=== PATIENT | female | born 1965 | race Caucasian/White ===

== ENCOUNTER 2017-06-30 22:04 | Inpatient (IN) ==
[2017-06-30] MEDS ORDERED: METHYLPREDNISOLONE SOD SUCC 125mg/2ml INJECTION IM ONE (22:18)
[2017-06-30] MEDS ORDERED: ALBUTEROL/IPRATROPIUM 2.5mg-0.5mg/3ml NEB AEROSOL ONE ×2 (22:18→23:46)
[2017-06-30] MEDS ORDERED: METHYLPREDNISOLONE SOD SUCC 125mg/2ml INJECTION IVP ONE (22:27)
--- NOTE | 2017-06-30 22:32 | Emergency Department Report ---
Asthma HPI - General Chief Complaint: Upper Respiratory Infection Stated Complaint: Trouble breathing Time Seen by Provider: 06/30/17 22:18 Source: patient, family Mode of arrival: ambulatory Limitations: no limitations - History of Present Illness HPI Narrative: Patient presents with difficulty breathing, confusion, and some delirium over the past 36 hours. Patient has COPD/asthma, uses only beclomethasone daily, with when necessary albuterol. Patient has not used her nebulizer, as she has loaded someone and doesn't know where it is. Patient has no medical medications other than a Ventolin inhaler at home as well. She had similar symptoms last year when she had respiratory failure and sepsis secondary to pneumonia. Her daughter who lives with her, works nights, and notes that the patient was having increasing difficulty breathing tonight so she came back to [facility], rather than [facility] which is closer, because they feel confident due to past history with [facility]. Patient doctors both with her primary physician as well as her dental patient coordinator in [facility]. MD complaint: shortness of breath, wheezing Onset (ago): day(s) Severity: severe Associated symptoms: productive cough - Related Data Home Medications Medication Instructions Recorded Confirmed Albuterol Sulfate [Ventolin Hfa] 1 puff INH DAILY PRN #0 05/09/16 Atenolol 50 mg PO DAILY #0 05/09/16 Atorvastatin Calcium 40 mg PO DAILY #0 05/09/16 Budesonide/Formoterol Fumarate 1 puff AEROSOL PRN #0 05/09/16 [Symbicort 160-4.5 Mcg Inhaler] Duloxetine HCl 60 mg PO DAILY #0 05/09/16 Levothyroxine Sodium 125 mcg PO ACB #0 05/09/16 Morphine Sulfate [Morphine Sulfate 30 mg PO BID #0 05/09/16 ER] Umeclidinium [place] [Incruse 1 cap INH PRN #0 05/09/16 Ellipta] Zolpidem Tartrate 10 mg PO HS #0 05/09/16 clonazePAM [Clonazepam] 1 mg PO BID #0 05/09/16 lamoTRIgine [Lamotrigine] 150 mg PO BID #0 05/09/16 Previous Rx's Medication Instructions Recorded Budesonide 0.5 mg AEROSOL RTBID 14 Days #1 box 05/14/16 Ipratropium/Albuterol Sulfate 3 ml AEROSOL RTQID 14 Days #1 box 05/14/16 [Iprat-Albut 0.5-3(2.5) mg/3 ml] PredniSONE [Deltasone] 10 mg PO WB #85 tab 05/14/16 levoFLOXacin [Levaquin] 500 mg PO DAILY 7 Days #0 05/14/16 Allergies Allergy/AdvReac Type Severity Reaction Status Date / Time codeine Allergy Unknown Verified 05/09/16 10:47 Sulfa (Sulfonamide Allergy Unknown Verified 05/09/16 10:47 Antibiotics) Review of Systems All systems: reviewed and negative except as stated PFSH Patient Stated Medical History Hypertension Yes Asthma Yes Osteoarthritis Yes Depression Yes Psoriatic arthritis Global chronic pain syndrome Narcotic dependence - Social History Smoking status: Never smoker Physical Exam - Limitations Limitations: no limitations - General General appearance: alert (patient is alert, but appears mildly confused), obese - Normal Exams: Head:: Normocephalic without trauma Eyes:: Pupils are PERRLA w/ EOMI, No scleral icterus, irritation, or foreign bodies noted ENMT:: No facial trauma, nasal exudates, pharyngeal erythema, or exudates are noted Neck:: Full range of motion, without adenopathy, JVD, bruits or thyromegaly Cardiovascular:: Regular rate and rhythm, without murmur or gallop, Pulses 2+ all extremities, capillary refill, <2 seconds all extremities Abdomen:: Bowel sounds positive, soft, non-tender, non-distended, no hepatosplenomegaly, masses or bruits noted Lymphatic:: No lymphadenopathy, or lymphedema noted Musculoskeletal:: No tenderness, or deformity noted, good range of motion, all extremities Integumentary:: No rashes, hives, or bruising noted, hair and nails, without abnormality Neurological:: Patient is alert, and oriented, cranial nerves, motor/sensory/ cerebellar, exams w/o gross deficits, to observation Psychiatric:: Patient exhibits, appropriate attention, emotion and affect - Chest Chest inspection: Present: normal inspection, symmetric chest wall rise. Absent : tenderness - Respiratory Respiratory exam: Present: wheezes, prolonged expiratory phase. Absent: normal lung sounds bilaterally (course wheezes and rhonchi bilaterally), respiratory distress, accessory muscle use Course Vital Signs Pulse Rate 116 H 06/30/17 22:21 Pulse Oximetry 94 06/30/17 22:21 Temperature 98.1 F 06/30/17 23:04 Pulse Rate 122 H 06/30/17 23:45 Respiratory Rate 22 07/01/17 00:22 Blood Pressure 150/90 H 06/30/17 23:30 Pulse Oximetry 94 07/01/17 00:22 Dyspnea - MDM Narrative Medical decision making narrative: Patient given 2 DuoNeb's an 125 mg Solu-Medrol IV with 1 L normal saline IV fluid bolus - patient improved, but continues to have hypoxemia as she is sleeping. Due to the patient's body habitus and her narcotic use, it seems very typical for this patient might have sleep apnea. After the initial 2 treatments and Solu-Medrol, patient is improved, but certainly not back to her baseline as she continues to have rhonchi and wheezes though her air movement is much improved. CBC normal CMP normal with the exception of moderate elevation in the liver enzymes, which appears typical for the patient from previous visits Chest x-ray sexually significantly better than all prior films. After initial studies were done, patient given 2 additional DuoNeb's - patient still breathing better, but continues to have audible wheezing, and continues to be oxygen dependent with hypoxemia on room air. Patient will be admitted to Dr. Mauro Bautista for the hospitalist service, for COPD exacerbation, with hypoxemia - Lab Data Result diagrams: 06/30/17 22:45 06/30/17 22:45 Lab Results 06/30/17 06/30/17 Range/Units 22:45 22:45 WBC 14.3 H (4.5-11.0) T/MM3 RBC 4.52 (4.00-5.20) M/MM3 Hgb 12.5 (12-16) GM/DL Hct 39.7 (36-46) % MCV 87.8 (80-100) UM3 MCH 27.7 (26-34) UUG MCHC 31.5 (31-37) GM/DL RDW Std Deviation 41.6 (36.9-50.2) FL Plt Count 395 (130-400) T/MM3 MPV 9.9 (9.4-12.4) UM3 Immature Gran % (Auto) 0.2 (0.0-0.5) % Neut % (Auto) 67.5 H (33-66) % Lymph % (Auto) 24.4 (23-45) % [place] % (Auto) 4.7 (0-9.0) % Eos % (Auto) 3.0 (0-4) % Baso % (Auto) 0.2 (0-2) % Neut # (Auto) 9.7 H (1.8-7.7) T/MM3 Lymph # (Auto) 3.5 (1-4.8) T/MM3 [place] # (Auto) 0.7 (0-0.8) T/MM3 Eos # (Auto) 0.4 (0-0.5) T/MM3 Baso # (Auto) 0.0 (0-0.2) T/MM3 Abs Immat Gran (auto) 0.03 (0.00-0.03) T/MM3 Turbidity < 20 (0-20) Sodium 139 (134-144) MEQ/L Potassium 4.2 (3.6-5) MEQ/L Chloride 102 (98-107) MEQ/L Carbon Dioxide 28 (22-30) MEQ/L Anion Gap 9 (5-15) MEQ/L BUN 6.0 L (7-17) MG/DL Creatinine 0.5 L (0.7-1.2) MG/DL GFR Calculation 130 BUN/Creatinine Ratio 12 (6-26) RATIO Glucose 140 H (65-110) MG/DL Calculated Osmolality 268 (261-280) MOSM/KG Calcium 9.3 (8.4-10.2) MG/DL Total Bilirubin 0.70 (0.20-1.30) MG/DL Conjugated Bilirubin 0.00 (0.00-0.30) MG/DL Unconjugated Bilirubin 0.00 (0.00-1.1) MG/DL Icterus Index < 2 (0-7) AST 382 H (14-36) U/L ALT 168 H (9-52) U/L Alkaline Phosphatase 282 H (38-126) U/L Total Protein 7.5 (6.3-8.2) G/DL Albumin 4.0 (3.5-5.0) G/DL Globulin 3.5 (2.4-3.6) G/DL Albumin/Globulin Ratio 1.1 (1.1-2.2) RATIO Plasma Lactate 1.3 (0.6-2.2) MMOL/L Specimen Hemolysis 27 H (0-25) Critical Care Time Critical Care Time: Yes Total Critical Care Time: 45 Attestation: Patient required aggressive respiratory therapy as well as aggressive diagnostic and interventions secondary to confusion hypoxemia and possible sepsis with tachycardia. Disposition Clinical Impression: COPD exacerbation Disposition: 02 To [facility] [place] Acute Care Condition: Improved Prescriptions: No Action Morphine Sulfate [Morphine Sulfate ER] 30 mg PO BID #0 clonazePAM [Clonazepam] 1 mg PO BID #0 Atenolol 50 mg PO DAILY #0 Duloxetine HCl 60 mg PO DAILY #0 Budesonide/Formoterol Fumarate [Symbicort 160-4.5 Mcg Inhaler] 1 puff AEROSOL PRN #0 levoFLOXacin [Levaquin] 500 mg PO DAILY 7 Days #0 Budesonide 0.5 mg AEROSOL RTBID 14 Days #1 box Levothyroxine Sodium 125 mcg PO ACB #0 Zolpidem Tartrate 10 mg PO HS #0 lamoTRIgine [Lamotrigine] 150 mg PO BID #0 Albuterol Sulfate [Ventolin Hfa] 1 puff INH DAILY PRN #0 PRN Reason: PRN ORDERS Atorvastatin Calcium 40 mg PO DAILY #0 Umeclidinium [place] [Incruse Ellipta] 1 cap INH PRN #0 Ipratropium/Albuterol Sulfate [Iprat-Albut 0.5-3(2.5) mg/3 ml] 3 ml AEROSOL RTQID 14 Days #1 box PredniSONE [Deltasone] 10 mg PO WB #85 tab Referrals: Daog Collado MD [Family Provider] - - Seen By: physician
[2017-06-30] MEDS: SALINE FLUSH 10ml SYRINGE IVF PRN (22:42)
[2017-06-30] MEDS: NS 1,000 ML IV SCH (22:55)
[2017-07-01] MEDS ORDERED: ONDANSETRON 4 MG/2 ML INJECTION IVP PRN (01:15)
[2017-07-01] MEDS ORDERED: Bisacodyl EC TAB 5 MG TABLET PO PRN (01:15)
[2017-07-01] MEDS: SALINE FLUSH 10ml SYRINGE IVF PRN ×4 (01:53→17:50)
--- NOTE | 2017-07-01 02:12 | History & Physical Report ---
<Mauro Bautista P - Last Filed: 07/01/17 02:09> History of Present Illness Date: 07/01/17 Chief complaint: sob and cough HPI: Ms. Merlos is a 51yo woman with h/o COPD not on home O2, HTN, dyslipidemia, partial thyroidectomy, KENDRA on CPAP, Gastric sleeve, psoriatic arthritis, and chronic pain who presents with 2-3 days of progressive sob and cough with green sputum. No blood in sputum, and no persistent pleurisy or other CP. Noted fevers, chills, nausea and emesis. No abd pain but a couple of loose stools. She denies syncope or other med changes with her noting taking her ventolin and albuterol nebs infrequently. She feels better after 4 albuterol nebs and solumedrol in the ED with a liter NS. Please note that the patient was seen via telemedicine with nursing assistance on 07/01/2017. [facility] Patient Stated Medical History Migraine Yes Hypertension Yes Asthma Yes Chronic Obstructive Pulmonary Yes Disease (COPD) Pneumonia Yes Gastroesophageal Reflux Yes Disease Hepatitis Yes: Hep C Anemia Yes Other Hematologic Yes: Polycythemia Osteoarthritis Yes Depression Yes Surgical History: as in hpi with gastric sleeve, partial thyroidectomy, laminectomy - Social History Smoking status: Former smoker Alcohol intake frequency: does not drink Current residence: Apartment/Private Home ([place] outside [place], but liked the care at [facility] 1 year ago) Medications Home Medications Medication Instructions Recorded Confirmed Type Albuterol Sulfate [Ventolin Hfa] 1 puff INH DAILY PRN #0 05/09/16 07/01/17 History Atenolol 50 mg PO DAILY #0 05/09/16 07/01/17 History Budesonide/Formoterol Fumarate 1 puff AEROSOL PRN #0 05/09/16 07/01/17 History [Symbicort 160-4.5 Mcg Inhaler] Duloxetine HCl 60 mg PO DAILY #0 05/09/16 07/01/17 History Levothyroxine Sodium 125 mcg PO ACB #0 05/09/16 07/01/17 History Umeclidinium [place] [Incruse 1 cap INH PRN #0 05/09/16 07/01/17 History Ellipta] lamoTRIgine [Lamotrigine] 150 mg PO BID #0 05/09/16 07/01/17 History LORazepam [Lorazepam] 1 mg PO BID PRN MDD 2 07/01/17 07/01/17 History Oxycodone HCl 10 mg PO QID PRN MDD 4 07/01/17 07/01/17 History Oxycodone HCl [Oxycontin] 10 mg PO Q12HR PRN MDD 2 07/01/17 07/01/17 History Allergies Allergy/AdvReac Type Severity Reaction Status Date / Time codeine Allergy Unknown Verified 05/09/16 10:47 Sulfa (Sulfonamide Allergy Unknown Verified 05/09/16 10:47 Antibiotics) Exam Vital Signs: Temperature 96.7 F L 07/01/17 01:34 Pulse Rate 121 H 07/01/17 01:34 Respiratory Rate 12 07/01/17 01:34 Blood Pressure 125/90 H 07/01/17 01:34 Pulse Oximetry 94 07/01/17 01:34 Telemetry Rhythm: Sinus Rhythm Height/Weight/BMI: Height 1.6 m Weight 109.8 kg Body Mass Index 42.8 - Constitutional Present: no acute distress, morbidly obese, obese - Routine HEENT Exam Head: Present: normocephalic Eye: Present: EOMI - Routine Respiratory Exam Absent: accessory muscle use, respiratory distress Comments: bilateral wheezing with no focal rales, symmetric effort - Routine Cardiovascular Exam Present: RRR, S1, S2 - Routine Abdominal Exam Present: soft, normoactive bowel sounds - Routine Skin Exam Present: intact - Routine Neurological Exam Present: alert, oriented X3, CN II-XII intact - Routine Psychiatric Exam Present: normal affect Results - Labs CBC & Chem 7: 06/30/17 22:45 06/30/17 22:45 Assessment and Plan (1) COPD exacerbation Current visit: Yes Status: Acute 07/01/17 02:17 full inpatient admission with nebs, solumedrol, prior budesonide, and azithromycin IV. Hypoxia POA with SpO2 85% with home O2 eval if does not normalize after 2-3 days with no focal infx by CXR. Treat for acute infectious bacterial bronchitis/tracheitis with azithromycin. Needs to lose weight, and CPAP compliance for KENDRA stressed. (2) KENDRA (obstructive sleep apnea) Current visit: Yes Status: Acute (3) Hyperglycemia Current visit: Yes Status: Acute (4) HTN (hypertension) Current visit: Yes Status: Acute (5) Dyslipidemia Current visit: Yes Status: Acute (6) GERD (gastroesophageal reflux disease) Current visit: Yes Status: Acute Resuscitation Status: Full Code Hospital Course Summary Disclaimer: The visit summary below is not to be considered part of the above Progress Note. <Mouna Sheldon - Last Filed: 07/01/17 14:27> History of Present Illness Date: 07/01/17 Exam Vital Signs: Temperature 97.5 F 07/01/17 08:00 Pulse Rate 115 H 07/01/17 08:00 Respiratory Rate 22 07/01/17 11:30 Blood Pressure 140/85 H 07/01/17 08:00 Pulse Oximetry 97 07/01/17 11:30 Height/Weight/BMI: Height 1.6 m Weight 109.9 kg Body Mass Index 42.8 Results - Labs CBC & Chem 7: 07/01/17 10:33 06/30/17 22:45 Microbiology Results: Microbiology 07/01/17 13:17 Sputum, Expectorated Sputum Culture - Preliminary Culture Initiated - Results Pending Assessment and Plan (1) COPD exacerbation Current visit: Yes Status: Acute (2) KENDRA (obstructive sleep apnea) Current visit: Yes Status: Acute (3) Hyperglycemia Current visit: Yes Status: Acute (4) HTN (hypertension) Current visit: Yes Status: Acute (5) Dyslipidemia Current visit: Yes Status: Acute DVT Prophylaxis: Lovenox GI Prophylaxis: Pepcid Assessment and Plan: Dr. Bautista's note reviewed. Anjana interviewed and examined. CC: Dyspnea/confusion HPI: Resolved 1-year-old female with history of COPD who describes increasing dyspnea with cough and wheezing for 2-3 days. She has not had fever, chills, or sweats but reports sore throat, nasal congestion and postnasal drainage. In the emergency room confusion for 36 hours was described and currently patient reports no memory of being transported to the emergency room. She denies preceding dizziness or lightheadedness, denies home use of oxygen, and reports exertional dyspnea with one flight of stairs in the recent past. She reports that she was previously advised she needed oxygen at home but declined initiation of O2. Cough became productive of green sputum about 1 day ago. PH/SH/FH: agree with that recorded above with additional history of hypothyroidism, cervical laminectomy, right rotator cuff repair, bilateral TKA, cholecystectomy, bilateral tubal ligation, ORIF left wrist, and ORIF left ankle. Patient discontinued tobacco use approximately 15 years ago after "social" smoking since her teenage years. She has a history of experimenting with illicit drugs but no recent use. Her primary care physician is Dr. Dago Collado, she is a full code, and she would like for her daughter, Pooja River, be her alternate decision maker. Family history is notable only for father having hypertension; patient denies family history of lung disease, diabetes, cancer, or diabetes. ROS: 10 point review completed with patient describing some difficulty with her vision, tinnitus, palpitations, and tremors (PTCA)-unclear if tremors correlate with breathing treatments. EXAM: General-NAD, talkative, no evidence of respiratory distress HEENT-PERRL, EOMI without nystagmus, conjunctiva clear, sclera anicteric, conjugate gaze, facial structures symmetric, oropharynx clear, neck supple and without adenopathy Lungs-respirations nonlabored, good airflow, faint crackles at the left base initially-clear with repetitive inspirations, right lung entirely clear, no wheezing Cardiac-regular rhythm, S1-S2, low-grade tachycardia Abd-obese, soft, nontender, bowel sounds present Ext-without edema Skin-without evidence of wounds or rashes Neuro-cranial nerves 3-12 intact, MAEW, sensation intact to light touch/ temperature, no tremor present Psych-slightly anxious, cooperative, fluent speech DATA: Admission white count 14.3 increasing to 20.1 today; electrolytes unremarkable, creatinine 0.7, AST 382, ALT 168, alkaline phosphatase 282. Initial lactic acid 1.3 increasing to 3.9 this morning. Respiratory viral panel positive for rhinovirus. Procalcitonin 0.07. Chest x-ray reviewed by myself-NAD, angles clear. A/P: COPD exacerbation with hypoxia Rhinovirus URI Lactic acidosis Leukocytosis Chronic pain syndrome Altered mental status, resolved Abnormal liver enzymes Hypertension Obstructive sleep apnea Hyperglycemia GERD Hypothyroid Obesity Patient presents with COPD exacerbation triggered by rhinovirus URI. Sputum culture pending to look for superimposed bacterial tracheobronchitis. She is fully alert at present and hemodynamically stable. Lactic acid elevated of no clinical significance and there is no clinical indication of severe sepsis. Procalcitonin inconsistent with sepsis. Unclear if aggressive beta agonist therapy in conjunction with IV steroids has triggered elevated lactic acid. No indication for further fluid boluses. Oxygenating well with 1 L supplemental O2. Continue azithromycin-convert to oral delivery. IV steroids initiated overnight for COPD exacerbation, continue. Continue beta agonist therapy. Single dose Rocephin given earlier but given normal chest x-ray and evidence of viral infection we'll discontinue at this time. Monitor blood sugars on steroids, corrective insulin if needed. Nursing advised me that the patient has been using OxyContin for breakthrough pain taking up to 6 tablets at a time and using OxyIR twice daily for her maintenance medication. Suspect this may have contributed to altered mental status on presentation. Will attempt to minimize narcotics during hospital course. Patient was pain free when seen having received no narcotics overnight. Resume Cymbalta, Lamictal, levothyroxine, lorazepam when necessary, and OxyIR when necessary. Pepcid added for gastric protection/GERD while on steroids; Lovenox for DVT prevention. Hospital Course Summary Disclaimer: The visit summary below is not to be considered part of the above Progress Note.
[2017-07-01] MEDS ORDERED: AZITHROMYCIN IV 500 MG in NS 250ml 250 ML IV SCH (02:15)
[2017-07-01] MEDS ORDERED: NS IV SCH (03:00)
[2017-07-01] MEDS ORDERED: METHYLPREDNISOLONE SOD SUCC IV SCH (03:00)
[2017-07-01] MEDS: NS 1,000 ML IV SCH ×3 (03:48→23:23)
[2017-07-01] MEDS: ALBUTEROL/IPRATROPIUM 2.5mg-0.5mg/3ml NEB AEROSOL SCH ×6 (04:58→23:37)
[2017-07-01] MEDS: BUDESONIDE INH.SOLN 0.5mg/2ml NEB AEROSOL SCH ×2 (07:30→19:10)
--- NOTE | 2017-07-01 07:54 | XRay Report ---
INDICATION: difficulty breathing with cough PROCEDURE: CHEST 2-VIEWS UPRIGHT (PA & LAT) Encounter: Initial COMPARISON: May 12, 2016 FINDINGS: The lungs are clear without evidence of focal abnormal airspace opacity. There is no pleural effusion or pneumothorax. Prior right PICC line has been removed. Right-sided airspace consolidation has resolved. The heart size, mediastinal contours and pulmonary vascularity are within normal limits. There is no significant skeletal abnormality. IMPRESSION: No acute cardiopulmonary disease. .
[2017-07-01] MEDS: ENOXAPARIN 40 MG/0.4 ML INJECTION SQ SCH (09:25)
[2017-07-01] MEDS: ATENOLOL 50 MG TABLET PO SCH (09:26)
[2017-07-01] MEDS: METHYLPREDNISOLONE SOD SUCC 125mg/2ml INJECTION IVP SCH ×3 (12:02→23:24)
[2017-07-01] MEDS: MORPHINE SULFATE 4 MG SYRINGE IVP PRN ×3 (12:12→20:22)
[2017-07-01] MEDS ORDERED: CEFTRIAXONE 1 G in NS 100 ML IV SCH (12:45)
[2017-07-01] MEDS ORDERED: Oxycodone *IR* 5 MG TABLET PO PRN (14:21)
[2017-07-01] MEDS ORDERED: LORazepam 1 MG TABLET PO PRN (14:21)
[2017-07-01] MEDS ORDERED: ACETAMINOPHEN 325 MG TABLET PO PRN (14:30)
[2017-07-01] MEDS ORDERED: PNEUMOCOCCAL 13 VACCINE 0.5ml INJECTION IM ONE (14:46)
[2017-07-01] MEDS ORDERED: INFLUENZA VAC QIV 2017-18 (Fluarix*)(>=3yo) 0.5ml IM ONE (14:51)
[2017-07-01] MEDS ORDERED: INFLUENZA VAC. INJ. ADMIN CHARGE INJ ONE (14:52)
[2017-07-01 15:39] VITALS: BMI 42.9
[2017-07-01] MEDS ORDERED: PNEUMOCOCCAL VAC ADMIN CHARGE INJ ONE (19:00)
[2017-07-01] MEDS: LAMOTRIGINE 100 MG TABLET PO SCH (20:21)
[2017-07-01] MEDS: FAMOTIDINE 20 MG TABLET PO SCH (20:22)
[2017-07-01] MEDS: ATORVASTATIN 40 MG TABLET PO SCH (20:22)
[2017-07-01] MEDS: INSULIN ASPART 100unit/ml INJECTION SQ PRN (20:43)
[2017-07-02] MEDS: ALBUTEROL/IPRATROPIUM 2.5mg-0.5mg/3ml NEB AEROSOL SCH ×6 (03:55→23:55)
[2017-07-02] MEDS: METHYLPREDNISOLONE SOD SUCC 125mg/2ml INJECTION IVP SCH ×2 (05:50→11:31)
[2017-07-02] MEDS: LEVOTHYROXINE 125 MCG TABLET PO SCH (05:51)
[2017-07-02] MEDS: AZITHROMYCIN 250 MG TABLET PO SCH (05:51)
[2017-07-02] MEDS: BUDESONIDE INH.SOLN 0.5mg/2ml NEB AEROSOL SCH ×2 (07:45→20:24)
[2017-07-02] MEDS: DULOXETINE 60 MG CAPSULE PO SCH (09:23)
[2017-07-02] MEDS: LAMOTRIGINE 100 MG TABLET PO SCH ×2 (09:23→21:44)
[2017-07-02] MEDS: FAMOTIDINE 20 MG TABLET PO SCH ×2 (09:23→21:43)
[2017-07-02] MEDS: ATENOLOL 50 MG TABLET PO SCH (09:23)
[2017-07-02] MEDS: ENOXAPARIN 40 MG/0.4 ML INJECTION SQ SCH (09:23)
[2017-07-02] MEDS: NS 1,000 ML IV SCH ×2 (09:36→21:51)
[2017-07-02] MEDS: MORPHINE SULFATE 4 MG SYRINGE IVP PRN ×3 (11:25→21:48)
--- NOTE | 2017-07-02 13:22 | Progress Note ---
<Shannen Shaw - Last Filed: 07/02/17 13:29> Subjective: Anjana is seen today in follow up. Reports feeling somewhat better. Is still SOA when up in the room. Ongoing cough, but some improvement. She reports that she does not have any O2 at home. Does have a CPAP that she does not routinely wear. Does receive her inhaled medications from a company in [facility] as she has Medicare /Medicaid. She reports needing new nebulizer supplies, but her machine is functioning well. We did discuss plan of care. She denies any other acute c/o. Objective Vital signs: Temperature 96.5 F L 07/02/17 08:47 Pulse Rate 114 H 07/02/17 08:47 Respiratory Rate 16 07/02/17 11:35 Blood Pressure 142/81 H 07/02/17 08:47 Pulse Oximetry 98 07/02/17 11:35 Height/Weight/BMI: Height 1.6 m Weight 109 kg Body Mass Index 42.9 - Constitutional Present: mild distress, obese, cooperative - Routine HEENT Exam Head: Present: normocephalic, atraumatic Eye: Present: EOMI, PERRL, normal accommodation ENT: Present: mucous membranes moist - Routine Respiratory Exam Present: wheezes, diminished air movement (Air flow is moderately diminished. Scattered expiratory wheezes posteriorly. ) - Routine Cardiovascular Exam Present: RRR, S1, S2, no murmur Comments: Tachycardia noted on VS assessment. She did not appear overtly tachy during my exam. - Routine Abdominal Exam Present: soft, normoactive bowel sounds, non distended, non tender - Routine Extremities Exam Present: edema, full ROM - Routine Musculoskeletal Exam Musculoskeletal: Present: no clubbing or cyanosis, normal strength - Routine Skin Exam Present: intact, dry, warm - Routine Neurological Exam Present: alert, oriented X3 - Routine Psychiatric Exam Present: normal affect, normal thought process, cooperative Results - Labs CBC & Chem 7: 07/02/17 04:25 07/02/17 04:25 Microbiology Results: Microbiology 07/01/17 13:17 Sputum, Expectorated Gram Stain - Final 07/01/17 13:17 Sputum, Expectorated Sputum Culture - Preliminary Early growth 07/01/17 12:18 Urine Streptococcus pneumoniae Antigen (M - Final - Imaging and Cardiology Chest x-ray Additional comments: IMPRESSION: No acute cardiopulmonary disease. . Assessment and Plan (1) COPD exacerbation Current visit: Yes Status: Acute 07/01/17 02:17 full inpatient admission with nebs, solumedrol, prior budesonide, and azithromycin IV. Hypoxia POA with SpO2 85% with home O2 eval if does not normalize after 2-3 days with no focal infx by CXR. Treat for acute infectious bacterial bronchitis/tracheitis with azithromycin. Needs to lose weight, and CPAP compliance for KENDRA stressed. (2) KENDRA (obstructive sleep apnea) Current visit: Yes Status: Acute (3) Hyperglycemia Current visit: Yes Status: Acute (4) HTN (hypertension) Current visit: Yes Status: Acute (5) Dyslipidemia Current visit: Yes Status: Acute DVT Prophylaxis: Lovenox GI Prophylaxis: Pepcid Resuscitation Status: Full Code Assessment and Plan: A/P: COPD exacerbation with hypoxia Rhinovirus URI Lactic acidosis Leukocytosis Chronic pain syndrome Altered mental status, resolved Abnormal liver enzymes Hypertension Obstructive sleep apnea Hyperglycemia GERD Hypothyroid Obesity Plan: 07/02/17 Continue Azithro, Inhaled medications. Decrease Solumedrol to 40mg IV Q 8 hours. Leukocytosis likely steroid related. Continue to wean O2. Will need ambulatory O2 testing before she returns home. (was recommended to have O2 in the past). I have counselled her to use CPAP, and to work with [facility] if a different mask is needed. She will need nebulizer tubing prior to dismissal. She is a bit tachycardic- will check EKG for baseline, add tele. Increase atenolol to 100mg PO Q day starting tomorrow. BP is high enough to tolerate. She was noted to have tachycardia on prior visit last year. Continue remaining BP meds. Overall improving. Home 1-2 days? Repeat labs, CXR in AM. - Time spent with patient Time with patient PN: 30 minutes Hospital Course Summary Disclaimer: The visit summary below is not to be considered part of the above Progress Note. Hospital Course: 07/01/17 A/P: COPD exacerbation with hypoxia Rhinovirus URI Lactic acidosis Leukocytosis Chronic pain syndrome Altered mental status, resolved Abnormal liver enzymes Hypertension Obstructive sleep apnea Hyperglycemia GERD Hypothyroid Obesity H&P Patient presents with COPD exacerbation triggered by rhinovirus URI. Sputum culture pending to look for superimposed bacterial tracheobronchitis. She is fully alert at present and hemodynamically stable. Lactic acid elevated of no clinical significance and there is no clinical indication of severe sepsis. Procalcitonin inconsistent with sepsis. Unclear if aggressive beta agonist therapy in conjunction with IV steroids has triggered elevated lactic acid. No indication for further fluid boluses. Oxygenating well with 1 L supplemental O2. Continue azithromycin-convert to oral delivery. IV steroids initiated overnight for COPD exacerbation, continue. Continue beta agonist therapy. Single dose Rocephin given earlier but given normal chest x-ray and evidence of viral infection we'll discontinue at this time. Monitor blood sugars on steroids, corrective insulin if needed. Nursing advised me that the patient has been using OxyContin for breakthrough pain taking up to 6 tablets at a time and using OxyIR twice daily for her maintenance medication. Suspect this may have contributed to altered mental status on presentation. Will attempt to minimize narcotics during hospital course. Patient was pain free when seen having received no narcotics overnight. Resume Cymbalta, Lamictal, levothyroxine, lorazepam when necessary, and OxyIR when necessary. Pepcid added for gastric protection/GERD while on steroids; Lovenox for DVT prevention. 07/02/17 13:33 Continue Azithro, Inhaled medications. Decrease Solumedrol to 40mg IV Q 8 hours. Leukocytosis likely steroid related. Continue to wean O2. Will need ambulatory O2 testing before she returns home. (was recommended to have O2 in the past). I have counselled her to use CPAP, and to work with [employer] company if a different mask is needed. She will need nebulizer tubing prior to dismissal. She is a bit tachycardic- will check EKG for baseline, add tele. Increase atenolol to 100mg PO Q day starting tomorrow. BP is high enough to tolerate. She was noted to have tachycardia on prior visit last year. Continue remaining BP meds. Overall improving. Home 1-2 days? Repeat labs, CXR in AM. <Mouna Sheldon - Last Filed: 07/02/17 14:12> Objective Vital signs: Temperature 96.5 F L 07/02/17 08:47 Pulse Rate 114 H 07/02/17 08:47 Respiratory Rate 16 07/02/17 11:35 Blood Pressure 142/81 H 07/02/17 08:47 Pulse Oximetry 98 07/02/17 11:35 Height/Weight/BMI: Height 1.6 m Weight 109 kg Body Mass Index 42.9 Results - Labs CBC & Chem 7: 07/02/17 04:25 07/02/17 04:25 Microbiology Results: Microbiology 07/01/17 13:17 Sputum, Expectorated Gram Stain - Final 07/01/17 13:17 Sputum, Expectorated Sputum Culture - Preliminary Early growth 07/01/17 12:18 Urine Streptococcus pneumoniae Antigen (M - Final Assessment and Plan (1) COPD exacerbation Current visit: Yes Status: Acute (2) KENDRA (obstructive sleep apnea) Current visit: Yes Status: Acute (3) Hyperglycemia Current visit: Yes Status: Acute (4) HTN (hypertension) Current visit: Yes Status: Acute (5) Dyslipidemia Current visit: Yes Status: Acute Assessment and Plan: I have independently evaluated and examined this patient. I reviewed the chart, the patient's history, and the RFID DEVELOPER/PA's documented findings as above. We discussed and formulated the assessment and plan as above with additions as below: Anjana reports that she is breathing better today but continues to have minimally productive cough and nasal congestion/nasal drainage. She's noted minimal wheezing and is getting up to the bathroom without difficulty. She denies fever and reports family said she is completely back to normal when they visited earlier. The patient is alert and speech is fluent Respirations are nonlabored with good airflow when evaluated by me, breath sounds were slightly coarse but no wheezing was present on my exam Cardiac rhythm regular Agree with plans outlined above, tentatively plan to convert to prednisone in the morning. Sputum culture with white cells present and mixed bacteria on Gram stain, strep pneumonia antigen negative. Blood cultures negative. Acute exacerbation due to viral URI. Oxygenation has improved-98% on 0.5-1 L. Check on room air. Plan overnight oximetry tonight. Discussed with RT. Hospital Course Summary Disclaimer: The visit summary below is not to be considered part of the above Progress Note.
[2017-07-02] MEDS ORDERED: ATENOLOL 100 MG TABLET PO SCH (13:33)
[2017-07-02] MEDS: METHYLPREDNISOLONE SOD SUCC 40mg/ml INJECTION IVP SCH ×2 (15:24→22:14)
[2017-07-02] MEDS: INSULIN ASPART 100unit/ml INJECTION SQ PRN ×2 (15:47→21:45)
[2017-07-02] MEDS: ATORVASTATIN 40 MG TABLET PO SCH (21:43)
[2017-07-02] MEDS: SALINE FLUSH 10ml SYRINGE IVF PRN ×2 (21:45→22:14)
[2017-07-03] MEDS: ALBUTEROL/IPRATROPIUM 2.5mg-0.5mg/3ml NEB AEROSOL SCH ×3 (04:20→11:13)
[2017-07-03] MEDS: MORPHINE SULFATE 4 MG SYRINGE IVP PRN ×2 (04:33→10:45)
[2017-07-03] MEDS: AZITHROMYCIN 250 MG TABLET PO SCH (06:01)
[2017-07-03] MEDS: LEVOTHYROXINE 125 MCG TABLET PO SCH (06:01)
[2017-07-03] MEDS: BUDESONIDE INH.SOLN 0.5mg/2ml NEB AEROSOL SCH (07:37)
[2017-07-03] MEDS ORDERED: PredniSONE 20 MG TABLET PO SCH (08:00)
[2017-07-03 08:04] VITALS: BP 144/70; TEMP 98.1
[2017-07-03] MEDS: ENOXAPARIN 40 MG/0.4 ML INJECTION SQ SCH (08:20)
[2017-07-03] MEDS: NS 1,000 ML IV SCH (08:21)
[2017-07-03] MEDS: LAMOTRIGINE 100 MG TABLET PO SCH (08:22)
[2017-07-03] MEDS: FAMOTIDINE 20 MG TABLET PO SCH (08:23)
[2017-07-03] MEDS: DULOXETINE 60 MG CAPSULE PO SCH (08:23)
[2017-07-03] MEDS: INSULIN ASPART 100unit/ml INJECTION SQ PRN (10:44)
--- NOTE | 2017-07-03 10:44 | XRay Report ---
Indication: COPD PROCEDURE: XR chest 1V: Encounter: Initial Comparison: June 30, 2017 FINDINGS: The lungs are clear. There is no abnormal airspace opacity, pleural effusion or pneumothorax identified. The heart size, pulmonary vasculature and mediastinum are unchanged. IMPRESSION: No acute cardiopulmonary abnormality. .
[2017-07-03 11:21] VITALS: RESP 20
--- NOTE | 2017-07-03 11:47 | Discharge Summary ---
<ColinShannen D - Last Filed: 07/03/17 11:43> Discharge Information Date of admission: 07/01/17 01:09 Anticipated date of discharge: 07/03/17 Attending Physician: Mouna Sheldon MD Primary care physician: Dago Collado MD Consults: 07/01/17 01:39 Dietary Consult [CONS] Routine Comment: Reason For Exam: - Discharge Diagnosis (1) COPD exacerbation Status: Acute (2) KENDRA (obstructive sleep apnea) Status: Acute (3) Hyperglycemia Status: Acute (4) HTN (hypertension) Status: Acute (5) Dyslipidemia Status: Acute - Laboratory Labs: 07/03/17 04:09 07/03/17 04:09 - Microbiology Microbiology 07/01/17 13:17 Sputum, Expectorated Gram Stain - Final 07/01/17 13:17 Sputum, Expectorated Sputum Culture - Preliminary Staphylococcus aureus 07/01/17 12:18 Urine Streptococcus pneumoniae Antigen (M - Final - Radiology Radiology: CXR IMPRESSION: No acute cardiopulmonary abnormality. . History of Present Illness HPI: HPI- Telemed Ms. Merlos is a 51yo woman with h/o COPD not on home O2, HTN, dyslipidemia, partial thyroidectomy, KENDRA on CPAP, Gastric sleeve, psoriatic arthritis, and chronic pain who presents with 2-3 days of progressive sob and cough with green sputum. No blood in sputum, and no persistent pleurisy or other CP. Noted fevers, chills, nausea and emesis. No abd pain but a couple of loose stools. She denies syncope or other med changes with her noting taking her ventolin and albuterol nebs infrequently. She feels better after 4 albuterol nebs and solumedrol in the ED with a liter NS. Please note that the patient was seen via telemedicine with nursing assistance on 07/01/2017. Dr. Sheldon: HPI: Resolved 1-year-old female with history of COPD who describes increasing dyspnea with cough and wheezing for 2-3 days. She has not had fever, chills, or sweats but reports sore throat, nasal congestion and postnasal drainage. In the emergency room confusion for 36 hours was described and currently patient reports no memory of being transported to the emergency room. She denies preceding dizziness or lightheadedness, denies home use of oxygen, and reports exertional dyspnea with one flight of stairs in the recent past. She reports that she was previously advised she needed oxygen at home but declined initiation of O2. Cough became productive of green sputum about 1 day ago. 07/03/17 11:46 Patient is seen today in follow up. She reports feeling quite a lot better, and is insistent that she be returned to home today. Reports missing her family. She does use Symbicort at home, as well as Albuterol. Denies any acute concerns, and feels she is back to near normal. Objective Vital signs: Temperature 98.1 F 07/03/17 08:00 Pulse Rate 96 07/03/17 08:00 Respiratory Rate 20 07/03/17 11:13 Blood Pressure 144/70 H 07/03/17 08:00 Pulse Oximetry 97 07/03/17 08:00 Rhythm: Normal Sinus Rhythm Height/Weight/BMI: Height 1.6 m Weight 111.7 kg Body Mass Index 42.9 - Constitutional Present: no acute distress, obese, cooperative - Routine HEENT Exam Head: Present: normocephalic, atraumatic Eye: Present: EOMI, PERRL ENT: Present: mucous membranes moist - Routine Respiratory Exam Present: decreased breath sounds (MIldly diminished. ), wheezes (BIlateral scattered wheezes, but is improving. ). Absent: accessory muscle use, dyspnea - Routine Cardiovascular Exam Present: RRR, S1, S2, no murmur - Routine Abdominal Exam Present: soft, normoactive bowel sounds, non distended, non tender - Routine Extremities Exam Present: no edema, non tender - Routine Musculoskeletal Exam Musculoskeletal: Present: no clubbing or cyanosis, normal strength, moving extremities well - Routine Skin Exam Present: intact, dry, warm - Routine Neurological Exam Present: alert, oriented X3, CN II-XII intact, moving all extremities. Absent: abnormal gait - Routine Psychiatric Exam Present: normal affect, normal thought process, cooperative Hospital Course This is a general summary of the patient's hospital course. For more details refer to the complete medical record. Hospital course: 07/01/17 A/P: COPD exacerbation with hypoxia Rhinovirus URI Lactic acidosis Leukocytosis Chronic pain syndrome Altered mental status, resolved Abnormal liver enzymes Hypertension Obstructive sleep apnea Hyperglycemia GERD Hypothyroid Obesity H&P Patient presents with COPD exacerbation triggered by rhinovirus URI. Sputum culture pending to look for superimposed bacterial tracheobronchitis. She is fully alert at present and hemodynamically stable. Lactic acid elevated of no clinical significance and there is no clinical indication of severe sepsis. Procalcitonin inconsistent with sepsis. Unclear if aggressive beta agonist therapy in conjunction with IV steroids has triggered elevated lactic acid. No indication for further fluid boluses. Oxygenating well with 1 L supplemental O2. Continue azithromycin-convert to oral delivery. IV steroids initiated overnight for COPD exacerbation, continue. Continue beta agonist therapy. Single dose Rocephin given earlier but given normal chest x-ray and evidence of viral infection we'll discontinue at this time. Monitor blood sugars on steroids, corrective insulin if needed. Nursing advised me that the patient has been using OxyContin for breakthrough pain taking up to 6 tablets at a time and using OxyIR twice daily for her maintenance medication. Suspect this may have contributed to altered mental status on presentation. Will attempt to minimize narcotics during hospital course. Patient was pain free when seen having received no narcotics overnight. Resume Cymbalta, Lamictal, levothyroxine, lorazepam when necessary, and OxyIR when necessary. Pepcid added for gastric protection/GERD while on steroids; Lovenox for DVT prevention. 07/02/17 13:33 Continue Azithro, Inhaled medications. Decrease Solumedrol to 40mg IV Q 8 hours. Leukocytosis likely steroid related. Continue to wean O2. Will need ambulatory O2 testing before she returns home. (was recommended to have O2 in the past). I have counselled her to use CPAP, and to work with [employer] if a different mask is needed. She will need nebulizer tubing prior to dismissal. She is a bit tachycardic- will check EKG for baseline, add tele. Increase atenolol to 100mg PO Q day starting tomorrow. BP is high enough to tolerate. She was noted to have tachycardia on prior visit last year. Continue remaining BP meds. Overall improving. Home 1-2 days? Repeat labs, CXR in AM. 07/03/17 Anjana is feeling much better today. She is tolerating the decrease in steroids without difficulty. She is weaned off O2 and is tolerating well. Will assess ambulatory O2 sats prior to dismissal. Continue Symbicort and albuterol. She may need DME follow up for refit of CPAP mask. Sputum cx + Staph Aureus. Will DC home on doxycyline for coverage. Steroid taper. Tachycardia is better. Continue higher dose of Atenolol. D/W Dr. Sheldon. Plan to DC home today. Follow up with PCP in one week. Time spent with patient: greater than 35 minutes DVT Prophylaxis: SCD's GI Prophylaxis: Pepcid Discharge Plan - Med Rec/Dispo Referrals/Follow Up: Dago Collado MD [Family Provider] - (later this week-if you have a primary physician you see for general medical problems it would be better to see them.) Vijayuvpooja Instructions: COPD (Chronic Obstructive Pulmonary Disease) (GEN) Prescriptions: New Doxycycline [Vibramycin] 100 mg PO BID #14 tab Atenolol [Tenormin] 100 mg PO DAILY #30 tab PredniSONE [Deltasone] 40 mg PO WB #10 tablet Continue Duloxetine HCl 60 mg PO DAILY #0 Budesonide/Formoterol Fumarate [Symbicort 160-4.5 Mcg Inhaler] 1 puff AEROSOL PRN #0 Budesonide 0.5 mg AEROSOL RTBID 14 Days #1 box Oxycodone HCl 10 mg PO QID PRN MDD 4 PRN Reason: Pain LORazepam [Lorazepam] 1 mg PO BID PRN MDD 2 PRN Reason: Anxiety Oxycodone HCl [Oxycontin] 10 mg PO Q12HR PRN MDD 2 PRN Reason: Pain Levothyroxine Sodium 125 mcg PO ACB #0 lamoTRIgine [Lamotrigine] 150 mg PO BID #0 Albuterol Sulfate [Ventolin Hfa] 1 puff INH DAILY PRN #0 PRN Reason: PRN ORDERS Umeclidinium Morrison [Incruse Ellipta] 1 cap INH PRN #0 Ipratropium/Albuterol Sulfate [Iprat-Albut 0.5-3(2.5) mg/3 ml] 3 ml AEROSOL RTQID 14 Days #1 box Discontinued Atenolol 50 mg PO DAILY #0 Discharge Instructions/Outpatient Orders: Final Provider Discharge Instructions Location: Determined By Patient <Mouna Sheldon Last Filed: 07/03/17 13:38> Discharge Information Date of admission: 07/01/17 01:09 Primary care physician: - Discharge Diagnosis (1) COPD exacerbation Status: Acute (2) KENDRA (obstructive sleep apnea) Status: Resolved (3) Hyperglycemia Status: Acute Discharge Diagnosis: Steroid-induced, A1c 5.4 (4) HTN (hypertension) Status: Acute (5) Dyslipidemia Status: Acute - Laboratory Labs: 07/03/17 04:09 07/03/17 04:09 - Microbiology Microbiology 07/01/17 13:17 Sputum, Expectorated Gram Stain - Final 07/01/17 13:17 Sputum, Expectorated Sputum Culture - Preliminary Staphylococcus aureus 07/01/17 12:18 Urine Streptococcus pneumoniae Antigen (M - Final Objective Vital signs: Temperature 98.1 F 07/03/17 08:00 Pulse Rate 70 07/03/17 13:07 Respiratory Rate 20 07/03/17 11:13 Blood Pressure 144/70 H 07/03/17 08:00 Pulse Oximetry 94 07/03/17 13:07 Height/Weight/BMI: Height 1.6 m Weight 111.7 kg Body Mass Index 42.9 Hospital Course This is a general summary of the patient's hospital course. For more details refer to the complete medical record. Hospital course: I have independently evaluated and examined this patient. I reviewed the chart, the patient's history, and the EXTENSION ASSOCIATE/PA's documented findings as above. We discussed and formulated the assessment and plan as above with additions as below: Anjana reports improved respiratory status but poor sleep. Overnight oximetry was obtained on room air last night and this morning with oxygen saturation maintained virtually all night and only 20 seconds reported with O2 sat below 89 %. Admittedly patient indicates she slept little so study is inadequate for any diagnostic purpose but even with short periods of sleep no significant desaturations were recorded. She's been afebrile and denies dyspnea this morning. There is faint expiratory wheezing in the lung marquez bilaterally but airflow is improved from admission and inhalation no longer triggers cough. Sputum culture noted to be positive for staph-likely colonized. Treat with doxycycline is noted. Chest x-ray today reviewed by myself-NAD. Stable for discharge on prednisone, doxycycline, and atenolol 100 mg daily in conjunction with remainder of home medications. Patient asked to follow up with her usual pulmonary physician or PCP later this week for reassessment. Additionally have asked that she have her liver enzymes rechecked due to modest transaminitis demonstrated during this hospital stay with AST/ALT of 382/168 on admission repeating at 99/126 respectively yesterday. Patient remains off of statin at this time. Lactic acidosis was present on admission without indication of bacterial infection and likely is reflective of patient's underlying liver disease.
--- NOTE | 2017-07-03 11:58 | Discharge Instructions ---
Discharge Plan - Med Rec/Dispo Referrals/Follow Up: Dago Collado MD [Family Provider] - (later this week-if you have a primary physician you see for general medical problems it would be better to see them.) Soraida Instructions: COPD (Chronic Obstructive Pulmonary Disease) (GEN) Prescriptions: New Doxycycline [Vibramycin] 100 mg PO BID #14 tab Atenolol [Tenormin] 100 mg PO DAILY #30 tab PredniSONE [Deltasone] 40 mg PO WB #10 tablet Continue Duloxetine HCl 60 mg PO DAILY #0 Budesonide/Formoterol Fumarate [Symbicort 160-4.5 Mcg Inhaler] 1 puff AEROSOL PRN #0 Budesonide 0.5 mg AEROSOL RTBID 14 Days #1 box Oxycodone HCl 10 mg PO QID PRN MDD 4 PRN Reason: Pain LORazepam [Lorazepam] 1 mg PO BID PRN MDD 2 PRN Reason: Anxiety Oxycodone HCl [Oxycontin] 10 mg PO Q12HR PRN MDD 2 PRN Reason: Pain Levothyroxine Sodium 125 mcg PO ACB #0 lamoTRIgine [Lamotrigine] 150 mg PO BID #0 Albuterol Sulfate [Ventolin Hfa] 1 puff INH DAILY PRN #0 PRN Reason: PRN ORDERS Umeclidinium [place] [Incruse Ellipta] 1 cap INH PRN #0 Ipratropium/Albuterol Sulfate [Iprat-Albut 0.5-3(2.5) mg/3 ml] 3 ml AEROSOL RTQID 14 Days #1 box Discontinued Atenolol 50 mg PO DAILY #0 Discharge Instructions/Outpatient Orders: Final Provider Discharge Instructions Location: Determined By Patient - Disposition 01 Discharged Home, Self-Care
[2017-07-03] MEDS ORDERED: INFLUENZA VAC QIV 2017-18 (Fluarix*)(>=3yo) 0.5ml IM ONE (13:00)
[2017-07-03 13:13] VITALS: PULSE 70; O2SAT 94
[2017-07-03] MEDS ORDERED: NEOMYCIN/POLYMYXIN/BACITRACIN OINT PACKET TP PRN (13:52)
== END 2017-07-03 14:25 | disposition home health service (06) | DRG 191 ==
LOC: ED 22:04 → MED 07-01 01:09
PROVIDERS: ADMIT Hospitalist; ATTEND Internal Medicine